=== PATIENT | male | born 1945 | race Caucasian/White ===

== ENCOUNTER 2017-02-15 14:24 | Observation (INO) | payer MEDICARE, BC ==
[~2017-02-15] VITALS: Ht 177.8 cm; Wt 86.5 kg
[~2017-02-15 14:24] MED LIST: CLARITIN 1010 MG/TAB PO; FORTESTA10 MG/0.5 TP; SYNTHROID 0.0.025 MG PO; ZOCOR 40MG40 MG PO
[2017-02-15] MEDS ORDERED: SYNTHROID0.075 MG/T PO (14:29)
[2017-02-15 15:54] LABS: BASO # 0.1 (0.0-0.2); BASO % 0.4 % (0.0-2.0); EOS # 0.1 (0.0-0.7); EOS % 0.5 % (0-4.0); GRAN # 9.1 (1.4-6.5); GRAN % 81.3 % (42.2-75.2); HEMATOCRIT 41.2 % (42.0-52.0); LYMPH # 1.1 (1.2-3.4); LYMPH % 9.9 % (20.0-51.0); MEAN CELL VOLUME 95 fl (80.0-100.0); MEAN CORPUSCULAR HEMOGLOBIN 32 pg (27.0-31.0); MEAN CORPUSCULAR HGB CONC 34 g/dl (33.0-37.0); MEAN PLATELET VOLUME 10.6 fl (7.4-10.4); MONO # 0.8 (0.1-0.6); MONO % 7.5 % (1.7-9.3); PLATELET COUNT 271 K/mm3 (130-400); RED BLOOD COUNT 4.33 M/mm3 (4.20-5.60); REDCELL DISTRIBUTION WIDTH-CV 16.8 % (11.5-14.5); WHITE BLOOD COUNT 11.2 K/mm3 (4.8-10.8)
[2017-02-15 16:17] LABS: ADJUSTED CALCIUM 9.1 mg/dL (8.4-10.2); ALBUMIN 4.4 gm/dL (3.5-5.0); BILIRUBIN,TOTAL 2.1 mg/dL (0.0-1.0); C-REACTIVE PROTEIN 2.6 mg/dL (0.0-0.9); CALCIUM 9.4 mg/dL (8.4-10.2); CREATININE, serum 0.91 mg/dL (0.66-1.25); POTASSIUM 3.8 mmol/L (3.4-5.0); TOTAL PROTEIN 8.3 gm/dL (6.4-8.2)
[2017-02-15 16:18] LABS: INFLUENZA B NEGATIVE
[2017-02-15 18:00] VITALS: BP 136/70; PULSE 72; TEMP 97.8
[2017-02-15 22:08] VITALS: BP 124/67; PULSE 74; TEMP 99.4
[2017-02-16 01:33] VITALS: BP 140/65; PULSE 68; TEMP 98.3
[2017-02-16 06:05] VITALS: BP 118/65; PULSE 70; TEMP 98.4
[2017-02-16 09:12] LABS: ALBUMIN 3.4 gm/dL (3.5-5.0); BILIRUBIN,TOTAL 1.9 mg/dL (0.0-1.0); CALCIUM 8.5 mg/dL (8.4-10.2); CREATININE, serum 0.82 mg/dL (0.66-1.25); POTASSIUM 3.8 mmol/L (3.4-5.0); TOTAL PROTEIN 6.8 gm/dL (6.4-8.2)
[2017-02-16 09:30] VITALS: BP 134/66; PULSE 65; TEMP 98.2
[2017-02-16 10:00] LABS: BASO # 0.1 (0.0-0.2); BASO % 0.6 % (0.0-2.0); EOS # 0.1 (0.0-0.7); EOS % 1.4 % (0-4.0); GRAN # 5.3 (1.4-6.5); GRAN % 63.1 % (42.2-75.2); HEMATOCRIT 37.2 % (42.0-52.0); HEMOGLOBIN 12.1 g/dl (13.5-18.0); LYMPH % 23.9 % (20.0-51.0); MEAN CELL VOLUME 98 fl (80.0-100.0); MEAN CORPUSCULAR HEMOGLOBIN 32 pg (27.0-31.0); MEAN CORPUSCULAR HGB CONC 33 g/dl (33.0-37.0); MEAN PLATELET VOLUME 10.2 fl (7.4-10.4); MONO # 0.9 (0.1-0.6); MONO % 10.5 % (1.7-9.3); PLATELET COUNT 245 K/mm3 (130-400); RED BLOOD COUNT 3.81 M/mm3 (4.20-5.60); REDCELL DISTRIBUTION WIDTH-CV 17.2 % (11.5-14.5); WHITE BLOOD COUNT 8.4 K/mm3 (4.8-10.8)
[2017-02-16 13:28] VITALS: BP 132/60; PULSE 68; TEMP 98.4
[2017-02-16 17:37] VITALS: BP 143/60; PULSE 65; TEMP 98.7
== END 2017-02-16 17:55 | disposition home or self-care (01) ==
LOC: COL.ER 14:24 → SURG 17:15
PROVIDERS: Physician Assistant; Surgery
DX: K63.89 Other specified diseases of intestine (principal); R10.84 Generalized abdominal pain; E03.9 Hypothyroidism, unspecified
CPT/HCPCS: G0378; J2550; J7030; Q9967

== ENCOUNTER 2019-08-25 10:09 | Emergency (ER) | payer MEDICARE, BC ==
[~2019-08-25] VITALS: Ht 177.8 cm; Wt 86.4 kg
[~2019-08-25 10:09] MED LIST changes: +SYNTHROID0.075 MG/T PO
[2019-08-25] MEDS ORDERED: CEPHALEXIN500 M1 PO (11:03)
[2019-08-25 11:43] VITALS: BP 126/69; PULSE 63; TEMP 98.3
== END 2019-08-25 11:43 | disposition home or self-care (01) ==
LOC: COL.ER 10:09
DX: S61.217A Laceration without foreign body of left little finger without damage to nail, initial encounter (principal); S61.212A Laceration without foreign body of right middle finger without damage to nail, initial encounter; E03.9 Hypothyroidism, unspecified; Z88.8 Allergy status to other drugs, medicaments and biological substances; W25.XXXA Contact with sharp glass, initial encounter; Y92.009 Unspecified place in unspecified non-institutional (private) residence as the place of occurrence of the external cause

== ENCOUNTER → 2023-10-25 | Emergency (ER) | payer MEDICARE ==
[~2023-10-25] VITALS: Ht 175.3 cm; Wt 90.9 kg
[~2023-10-25] MED LIST changes: +CEPHALEXIN500 M1 PO
[2023-10-25 19:48] VITALS: TEMP 98.2
[2023-10-25 20:10] LABS: BASO # 0.2 K/mm3 (0.0-0.2); BASO % 1.9 % (0.0-2.0); EOS # 0.1 K/mm3 (0.0-0.7); EOS % 0.9 % (0.0-4.0); GRAN # 6.1 K/mm3 (1.4-6.5); GRAN % 66.5 % (42.2-75.2); HEMATOCRIT 41.2 % (42.0-52.0); LYMPH # 1.5 K/mm3 (1.2-3.4); LYMPH % 16.6 % (20.0-51.0); MEAN CELL VOLUME 96 fl (80.0-100.0); MEAN CORPUSCULAR HEMOGLOBIN 33 pg (27-31); MEAN CORPUSCULAR HGB CONC 34 g/dl (33.0-37.0); MEAN PLATELET VOLUME 10.6 fl (7.4-10.4); MONO # 1.3 K/mm3 (0.1-0.6); MONO % 13.8 % (1.7-9.3); PLATELET COUNT 252 K/mm3 (130-400); RED BLOOD COUNT 4.28 M/mm3 (4.20-5.60); REDCELL DISTRIBUTION WIDTH-CV 23.1 % (11.5-14.5)
[2023-10-25 20:41] LABS: ALBUMIN 4.2 gm/dL (3.4-4.8); BILIRUBIN,TOTAL 1.9 mg/dL (0.2-1.2); CREATININE, serum 0.98 mg/dL (0.72-1.25); POTASSIUM 3.4 mmol/L (3.5-4.5); TOTAL PROTEIN 7.8 gm/dL (6.2-8.1)
[2023-10-25 20:45] LABS: INR 1.2 (0.8-3.0); PROTHROMBIN TIME 13.1 SECONDS (9.7-12.8)
[2023-10-25 20:48] LABS: PARTIAL THROMBOPLASTIN TIME 29.3 SECONDS (26.0-37.0)
[2023-10-25 20:52] LABS: TROPONIN-I 0.557 ng/mL (0.00-0.033)
[2023-10-25 21:15] VITALS: BP 153/79; PULSE 82
[2023-10-25 21:16] VITALS: O2SAT 95
== END ==
LOC: COL.ER 19:41
PROVIDERS: Emergency Medicine
DX: I21.9 Acute myocardial infarction, unspecified (principal)
CPT/HCPCS: J1644; J3101

== ENCOUNTER 2023-11-19 14:55 | Outpatient (RCR) | payer MEDICARE, OTHER | END 2023-11-21 | disposition home or self-care (01) | LOC: COL.CR | DX: I21.3 ST elevation (STEMI) myocardial infarction of unspecified site (principal) ==

== ENCOUNTER 2023-12-12 12:40 | Inpatient (IN) | payer MEDICARE, OTHER ==
[~2023-12-12] VITALS: Ht 175.3 cm; Wt 86.1 kg
[2023-12-12] MEDS ORDERED: Sucralfate Susp 1 GM/10 ML UD PO ONE (13:00)
[2023-12-12 13:11] LABS: BASO # 0.1 K/mm3 (0.0-0.2); BASO % 0.5 % (0.0-2.0); EOS # 0.1 K/mm3 (0.0-0.7); EOS % 0.7 % (0.0-4.0); GRAN # 12.2 K/mm3 (1.4-6.5); GRAN % 81.9 % (42.2-75.2); HEMATOCRIT 39.1 % (42.0-52.0); HEMOGLOBIN 13.4 g/dl (13.5-18.0); LYMPH # 1.5 K/mm3 (1.2-3.4); LYMPH % 9.9 % (20.0-51.0); MEAN CELL VOLUME 94 fl (80.0-100.0); MEAN CORPUSCULAR HEMOGLOBIN 32 pg (27-31); MEAN CORPUSCULAR HGB CONC 34 g/dl (33.0-37.0); MEAN PLATELET VOLUME 10.4 fl (7.4-10.4); MONO % 6.8 % (1.7-9.3); PLATELET COUNT 246 K/mm3 (130-400); RED BLOOD COUNT 4.18 M/mm3 (4.20-5.60); REDCELL DISTRIBUTION WIDTH-CV 20.9 % (11.5-14.5)
[2023-12-12 13:18] LABS: INR 1.4 (0.8-3.0); PROTHROMBIN TIME 15.2 SECONDS (9.7-12.8)
[2023-12-12 13:21] LABS: PARTIAL THROMBOPLASTIN TIME 30.7 SECONDS (26.0-37.0)
[2023-12-12 13:41] LABS: ALBUMIN 4.2 gm/dL (3.4-4.8); BILIRUBIN,TOTAL 2.1 mg/dL (0.2-1.2); CALCIUM 9.4 mg/dL (8.4-10.2); CREATININE, serum 1.03 mg/dL (0.72-1.25); POTASSIUM 4.1 mmol/L (3.5-4.5)
[2023-12-12 13:47] LABS: TROPONIN-I 0.017 ng/mL (0.00-0.033)
[2023-12-12] MEDS ORDERED: Iohexol 300 - 100 ML VIAL IV ONE (14:10)
[2023-12-12] MEDS ORDERED: NS 100 ML IV SCH (14:10)
[2023-12-12] MEDS ORDERED: COREG 6.256.25 MG/TA PO (16:40)
[2023-12-12] MEDS ORDERED: ALDACTONE 25MG25 M1 PO (16:40)
[2023-12-12] MEDS ORDERED: SYNTHROID0.088 MG/T PO (16:41)
[2023-12-12] MEDS ORDERED: PLAVIX 75MG TAB75 MG PO (16:41)
[2023-12-12] MEDS ORDERED: CRESTOR40 MG PO (16:42)
[2023-12-12] MEDS ORDERED: ELIQUIS 5MG PO (16:42)
[2023-12-12] MEDS ORDERED: COZAAR 25MG25 MG/TAB PO (16:43)
[2023-12-12] MEDS ORDERED: Heparin 5,000 UNITS/ML 1 ML VIAL IV PRN (17:00)
[2023-12-12] MEDS ORDERED: NS 1,000 ML IV SCH (17:00)
[2023-12-12] MEDS ORDERED: Heparin/D5W 250 ML IV SCH (17:00)
[2023-12-12] MEDS ORDERED: COREG 3.123.125 MG/T PO (17:00)
[2023-12-12] MEDS ORDERED: *Potassium Replacement Protocol MC SCH (17:00)
[2023-12-12 17:03] VITALS: BP 126/68; PULSE 66; TEMP 98
--- NOTE | 2023-12-12 17:10 | NUR ---
Patient to room 347 by wheelchair from the ED. A&Ox4. VSS. IV CDI. Denies pain and discomfort. at the bedside. Nurse oriented the patient to location, room and call light. No further needs expressed. Call light within reach. NPO
[2023-12-12 17:40] LABS: HEMATOCRIT 38.2 % (42.0-52.0); MEAN CELL VOLUME 93 fl (80.0-100.0); MEAN CORPUSCULAR HEMOGLOBIN 32 pg (27-31); MEAN CORPUSCULAR HGB CONC 34 g/dl (33.0-37.0); MEAN PLATELET VOLUME 10.9 fl (7.4-10.4); PLATELET COUNT 253 K/mm3 (130-400); RED BLOOD COUNT 4.11 M/mm3 (4.20-5.60); REDCELL DISTRIBUTION WIDTH-CV 21.2 % (11.5-14.5)
[2023-12-12 19:47] VITALS: BP 108/63; PULSE 71; TEMP 99.9
[2023-12-12 21:00] VITALS: BP_SYST 108
--- NOTE | 2023-12-12 21:22 | NUR ---
PATIENT ALERT AND ORIENTED X4. VSS. PATIENT HERE FOR SBO. PATIENT NPO ON BOWEL REST. IV TO LEFT HAND WITH HEP GTT RUNNING AT 10/HOUR. IV TO LEFT FA WITH NS RUNNING AT 100/HOUR. PATIENT ON CPAP HS. PATIENT DENIES ANY PAIN AT THIS TIME. CALL LIGHT IN REACH. NO FURTHER NEEDS.
[2023-12-12] MEDS ORDERED: Ondansetron 4 MG/2 ML VIAL IV PRN (22:45)
[2023-12-12 23:55] VITALS: BP 103/57; PULSE 64; TEMP 98.8
[2023-12-13] VITALS (14 sets, daily range): BP systolic 100–107; BP diastolic 48–83; PULSE 54–104; TEMP 97.4–98.5
[2023-12-13 06:49] LABS: BASO # 0.1 K/mm3 (0.0-0.2); BASO % 0.6 % (0.0-2.0); EOS # 0.2 K/mm3 (0.0-0.7); EOS % 1.6 % (0.0-4.0); GRAN # 6.6 K/mm3 (1.4-6.5); GRAN % 66.4 % (42.2-75.2); HEMOGLOBIN 11.7 g/dl (13.5-18.0); LYMPH % 20.4 % (20.0-51.0); MEAN CELL VOLUME 93 fl (80.0-100.0); MEAN CORPUSCULAR HEMOGLOBIN 32 pg (27-31); MEAN CORPUSCULAR HGB CONC 34 g/dl (33.0-37.0); MEAN PLATELET VOLUME 10.9 fl (7.4-10.4); MONO # 1.1 K/mm3 (0.1-0.6); MONO % 10.7 % (1.7-9.3); PLATELET COUNT 223 K/mm3 (130-400); RED BLOOD COUNT 3.68 M/mm3 (4.20-5.60); REDCELL DISTRIBUTION WIDTH-CV 21.2 % (11.5-14.5)
[2023-12-13 06:58] LABS: HEMATOCRIT 34.1 % (42.0-52.0)
--- NOTE | 2023-12-13 07:00 | NUR ---
PT RESTING IN BED AND TALKING ON THE PHONE. PT IS ON RA. PT IS SR ON TELE. PT IS ON A HEPARIN DRIP. PT IS NPO. PT IS AXOX3. PT HAS CALL LIGHT AND INSTRUCTED TO CALL WITH ALL NEEDS. 0830- THIS RN NOTIFIED BY LAURA PHARMACIST THAT WE ARE CHANING PT TO HIGH DOSE HEPARIN DRIP. WILL GO OFF THIS AM'S XA, WHICH IS NO CHANGE FROM THAT DOSE OF 800UNITS/HR. WILL CHANGE DRIP BACK TO 800 UNITS/HR AND CONTINUE WITH NEW PROTOCOL.
[2023-12-13 07:13] LABS: ALBUMIN 3.4 gm/dL (3.4-4.8); CALCIUM 8.7 mg/dL (8.4-10.2); CREATININE, serum 0.86 mg/dL (0.72-1.25); MAGNESIUM 1.9 mg/dL (1.6-2.6); PHOSPHOROUS 3.5 mg/dL (2.3-4.7); POTASSIUM 3.9 mmol/L (3.5-4.5)
[2023-12-13] MEDS ORDERED: Heparin/D5W 250 ML IV SCH (08:45)
--- NOTE | 2023-12-13 12:59 | NUR ---
D: Initial visit: trial manager stopped by room on rounds. Pt was resting and content. 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 P: Panel Wirer informed pt that if he needed anything during his stay, to let his nurse know. Panel Wirer will follow up as needed.
--- NOTE | 2023-12-13 14:47 | NUR ---
Mica Splitter met with patient to discuss discharge planning. Patient lives in [place] with his , Sherin (ph#[phone]) [address] Dr. Zamora for primary care. [facility], but also uses [facility] as needed. Patient has a home CPAP and no other DME. Patient is independent with ADLS and plans to return home at time of discharge. Patient does not have DPOA-HC completed, but was interested in the form, which SW provided. Discharge Plan: Home
--- NOTE | 2023-12-13 21:10 | NUR ---
Patient assessed around 2100. HepXa back at goal, order to recheck in the morning (patient has had two goals). Denies having pain and discomfort at this time. Denies having nausea. Has IV fluids running per orders, as well as Heparin drip. Denies SOB and dypsnea. LS CTA. HRR. BS hypoactive. In bed with call light within reach.
[2023-12-14] VITALS (11 sets, daily range): BP systolic 91–119; BP diastolic 49–67; PULSE 53–61; TEMP 97.6–98.4
--- NOTE | 2023-12-14 05:50 | NUR ---
Patient reports mild pain this morning, but decline wanting anything for pain or nausea. Continues on IV fluids per orders, as well as Heparin drip. Voices no questions, needs, or concerns at this time. In bed with call light within reach.
--- NOTE | 2023-12-14 07:03 | NUR ---
PT RESTING IN BED. PT IS ON RA. PT IS SB ON TELE. PT HAS HEPARIN DRIP RUNNING AT 800UNITS/HR. AWAITING XA LEVEL. PT HAS CALL LIGHT AND INSTRUCTED TO CALL WITH ALL NEEDS.
[2023-12-14 07:55] LABS: BASO # 0.1 K/mm3 (0.0-0.2); BASO % 1.1 % (0.0-2.0); EOS # 0.2 K/mm3 (0.0-0.7); EOS % 3.1 % (0.0-4.0); GRAN # 3.2 K/mm3 (1.4-6.5); GRAN % 51.6 % (42.2-75.2); HEMOGLOBIN 11.9 g/dl (13.5-18.0); MEAN CELL VOLUME 94 fl (80.0-100.0); MEAN CORPUSCULAR HEMOGLOBIN 32 pg (27-31); MEAN CORPUSCULAR HGB CONC 34 g/dl (33.0-37.0); MEAN PLATELET VOLUME 10.9 fl (7.4-10.4); MONO # 0.7 K/mm3 (0.1-0.6); PLATELET COUNT 205 K/mm3 (130-400); RED BLOOD COUNT 3.73 M/mm3 (4.20-5.60); REDCELL DISTRIBUTION WIDTH-CV 20.8 % (11.5-14.5)
[2023-12-14 08:28] LABS: ALBUMIN 3.4 gm/dL (3.4-4.8); CALCIUM 8.7 mg/dL (8.4-10.2); CREATININE, serum 0.82 mg/dL (0.72-1.25); MAGNESIUM 1.9 mg/dL (1.6-2.6); PHOSPHOROUS 3.1 mg/dL (2.3-4.7); POTASSIUM 3.7 mmol/L (3.5-4.5)
[2023-12-14] MEDS ORDERED: Carvedilol 3.125 MG TAB PO SCH (12:24)
--- NOTE | 2023-12-14 15:40 | NUR ---
Lab called regarding XA level ordered for 1430. They stated they will follow up.
--- NOTE | 2023-12-14 20:30 | NUR ---
PT IN BED, IS ALERT AND ORIENTED X4. HAS IVF TO LFA AND HEP GTT TO LT HAND INFUSING WITHOUT REDNESS OR SWELLING. HS MED GIVEN. INDEPENDENT IN ROOM. ABD DISTENDED, HYPOACTIVE BS. REPORTS VOIDING WITHOUT PROBLEM, MINIMAL FLATUS. DENIES NEED FOR PAIN OR NAUSEA MEDS AT THIS TIME.
--- NOTE | 2023-12-15 00:30 | NUR ---
PT'S HEP XA=0.31, HEPARIN GTT RATE INCREASED BY 100UNITS/HR OR 11CC/HR. NEXT CHECK AT 0630.
[2023-12-15 00:47] VITALS: BP_SYST 91
[2023-12-15 03:17] VITALS: BP 104/58; PULSE 52; TEMP 97.9
[2023-12-15 04:34] VITALS: BP_SYST 104
--- NOTE | 2023-12-15 06:00 | NUR ---
SCHEDULED AM MED GIVEN. PT DENIES PAIN OR N/V AT THIS TIME. WEARING CPAP ALL NIGHT.
[2023-12-15 07:16] LABS: BASO # 0.1 K/mm3 (0.0-0.2); BASO % 1.1 % (0.0-2.0); EOS # 0.2 K/mm3 (0.0-0.7); EOS % 4.5 % (0.0-4.0); GRAN # 2.3 K/mm3 (1.4-6.5); GRAN % 42.1 % (42.2-75.2); HEMOGLOBIN 10.4 g/dl (13.5-18.0); LYMPH # 2.2 K/mm3 (1.2-3.4); LYMPH % 40.7 % (20.0-51.0); MEAN CELL VOLUME 93 fl (80.0-100.0); MEAN CORPUSCULAR HEMOGLOBIN 32 pg (27-31); MEAN CORPUSCULAR HGB CONC 34 g/dl (33.0-37.0); MEAN PLATELET VOLUME 11.1 fl (7.4-10.4); MONO # 0.6 K/mm3 (0.1-0.6); MONO % 11.4 % (1.7-9.3); PLATELET COUNT 210 K/mm3 (130-400); RED BLOOD COUNT 3.24 M/mm3 (4.20-5.60); REDCELL DISTRIBUTION WIDTH-CV 20.8 % (11.5-14.5)
[2023-12-15 07:19] LABS: HEMATOCRIT 30.2 % (42.0-52.0)
[2023-12-15 07:20] VITALS: BP 108/59; PULSE 61; TEMP 98
[2023-12-15 07:46] LABS: ALBUMIN 3.2 gm/dL (3.4-4.8); CALCIUM 8.6 mg/dL (8.4-10.2); CREATININE, serum 0.92 mg/dL (0.72-1.25); MAGNESIUM 1.9 mg/dL (1.6-2.6); PHOSPHOROUS 3.5 mg/dL (2.3-4.7); POTASSIUM 4.1 mmol/L (3.5-4.5)
[2023-12-15 09:00] VITALS: BP_SYST 108
--- NOTE | 2023-12-15 10:15 | NUR ---
DC'D LEFT WRIST AND LEFT FORARM IV SITE FOR PENDING DISCHARGE. IV CATH TIPS INTACT AND PATIENT TOLERATED WELL. COVERED SITES WITH GAUZE & COBAN. TELE DC'D. PATIENT GETTIND DRESSED AND PACKED FOR DISCHARGE.
--- NOTE | 2023-12-15 10:46 | NUR ---
1035-DISCHARGE INSTRUCTIONS AND FOLLOW UPS DISCUSSED WITH PT. NO NEW MEDICATIONS. ALL QUESITONS ANSWERED. PT DRESSED AND AWAITING HIS . INSTRUCTED PT TO CALL WHEN READY FOR DISCHARGE.
--- NOTE | 2023-12-15 11:20 | NUR ---
PT CALLED STATING HIS RIDE IS HERE FOR DISCHARGE. LUIS ALBERTO PCT WHEELED PT OUT FOR DISCHARGE.
== END 2023-12-15 11:27 | disposition home or self-care (01) | DRG 389 ==
LOC: COL.ER 12:40 → SURG 15:04
PROVIDERS: Emergency Medicine; ADMIT Internal Medicine
DX: K56.600 Partial intestinal obstruction, unspecified as to cause (principal); I23.6 Thrombosis of atrium, auricular appendage, and ventricle as current complications following acute myocardial infarction; K56.51 Intestinal adhesions [bands], with partial obstruction; K56.699 Other intestinal obstruction unspecified as to partial versus complete obstruction; I25.10 Atherosclerotic heart disease of native coronary artery without angina pectoris; I08.1 Rheumatic disorders of both mitral and tricuspid valves; I25.2 Old myocardial infarction; D64.9 Anemia, unspecified; E03.9 Hypothyroidism, unspecified; E78.5 Hyperlipidemia, unspecified; Z79.02 Long term (current) use of antithrombotics/antiplatelets; Z79.01 Long term (current) use of anticoagulants; Z79.890 Hormone replacement therapy; Z95.5 Presence of coronary angioplasty implant and graft
CPT/HCPCS: J1644; J2405; J7030; Q9967

== ENCOUNTER → 2023-12-22 | Outpatient (RCR) | payer MEDICARE, OTHER ==
[~2023-12-22] MED LIST changes: +ALDACTONE 25MG25 M1 PO; +COREG 3.123.125 MG/T PO; +COREG 6.256.25 MG/TA PO; +COZAAR 25MG25 MG/TAB PO; +CRESTOR40 MG PO; +ELIQUIS 5MG PO; +PLAVIX 75MG TAB75 MG PO; +SYNTHROID0.088 MG/T PO
== END | disposition home or self-care (01) ==
LOC: COL.CR
DX: I21.3 ST elevation (STEMI) myocardial infarction of unspecified site (principal)

== ENCOUNTER 2023-12-24 15:53 | Outpatient (RCR) | payer MEDICARE, OTHER | END 2024-01-20 | disposition home or self-care (01) | LOC: COL.CR | DX: I25.2 Old myocardial infarction (principal) ==

== ENCOUNTER 2024-09-13 15:53 | Emergency (ER) | payer MEDICARE, OTHER ==
[~2024-09-13] VITALS: Ht 175.3 cm; Wt 89.1 kg
[2024-09-13] MEDS ORDERED: Acetaminophen 325 MG TAB PO ONE (16:30)
[2024-09-13] MEDS ORDERED: NS 1,000 ML IV ONE (16:30)
[2024-09-13 16:33] LABS: BASO % 0.2 % (0.0-2.0); EOS % 0.2 % (0.0-4.0); GRAN # 9.9 K/mm3 (1.4-6.5); HEMOGLOBIN 10.1 g/dl (13.5-18.0); LYMPH # 1.3 K/mm3 (1.2-3.4); MEAN CELL VOLUME 98 fl (80.0-100.0); MEAN CORPUSCULAR HEMOGLOBIN 34 pg (27-31); MEAN CORPUSCULAR HGB CONC 34 g/dl (33.0-37.0); MEAN PLATELET VOLUME 11.4 fl (7.4-10.4); MONO # 1.4 K/mm3 (0.1-0.6); PLATELET COUNT 191 K/mm3 (130-400); REDCELL DISTRIBUTION WIDTH-CV 21.6 % (11.5-14.5)
[2024-09-13 16:34] LABS: HEMATOCRIT 29.5 % (42.0-52.0)
[2024-09-13 16:48] LABS: ALBUMIN 3.4 g/dL (3.4-4.8); BILIRUBIN,TOTAL 2.7 mg/dL (0.2-1.2); CALCIUM 8.7 mg/dL (8.4-10.2); POTASSIUM 3.8 mEq/L (3.5-4.5); TOTAL PROTEIN 6.8 g/dl (6.2-8.1)
[2024-09-13 17:49] VITALS: TEMP 98.4
[2024-09-13] MEDS ORDERED: Iohexol 350 - 100 ML VIAL IV ONE (18:08)
[2024-09-13] MEDS ORDERED: NS 100 ML IV ONE (18:09)
[2024-09-13 20:42] LABS: URINE APPEARANCE CLEAR (CLEAR/HAZY); URINE BLOOD NEGATIVE (NEGATIVE); URINE COLOR YELLOW (YELLOW); URINE GLUCOSE NEGATIVE (NEGATIVE); URINE KETONE NEGATIVE (NEGATIVE); URINE NITRATE NEGATIVE (NEGATIVE); URINE PROTEIN(semi-quant) NEGATIVE (NEGATIVE)
[2024-09-13 20:44] LABS: COLLECTION METHOD CLEAN CATCH
[2024-09-13 21:40] VITALS: BP 189/107; PULSE 93
== END 2024-09-13 21:40 | disposition short-term general hospital (02) ==
LOC: COL.ER 15:53
PROVIDERS: Physician Assistant
DX: J96.91 Respiratory failure, unspecified with hypoxia (principal); I31.9 Disease of pericardium, unspecified
CPT/HCPCS: J7030; Q9967